=== PATIENT | female | born 1965 | race African-American/Black ===

== ENCOUNTER 2018-12-06 15:59 | Emergency (ER) | payer OTHER ==
[~2018-12-06] VITALS: Ht 152.4 cm; Wt 104.5 kg
[2018-12-06 16:21] VITALS: Ht 152.4 cm; Wt 104.5 kg
[2018-12-06] MEDS ORDERED: BUMEX2 MG (16:26)
[2018-12-06] MEDS ORDERED: TYLENOL W/CODEI1 TAB (16:26)
[2018-12-06] MEDS ORDERED: ZANAFLEX4 MG (16:26)
[2018-12-06] MEDS ORDERED: ADALAT CC90 MG PO (16:27)
[2018-12-06] MEDS ORDERED: CATAPRES0.1 MG (16:27)
[2018-12-06] MEDS ORDERED: FIORICET/ESGIC1 TAB (16:29)
[2018-12-06 17:18] LABS: BASOPHILS 0.5 % (0-2); EOSINOPHILS 2.8 % (0-7); HEMATOCRIT 36.8 % (36.0-48.0); HEMOGLOBIN 11.3 g/dL (12-16); IMMATURE GRANULOCYTES 0.2 % (0-5); LYMPHOCYTES 32.1 % (15-50); MCH 23.8 pg (26.0-34.0); MCHC 30.7 g/dL (31.0-37.0); MCV 77.6 fL (80.0-100.0); MEAN PLATELET VOLUME 9.3 fL (7.4-10.4); MONOCYTES 3.7 % (2-11); NEUTROPHILS 60.7 % (40-80); PLATELET COUNT 333 10x3/uL (130-400); RBC 4.74 10x6/uL (4.00-5.40); WBC 9.6 10x3/uL (4.8-10.8)
[2018-12-06 17:40] LABS: ALBUMIN 3.6 g/dL (3.4-5.0); ANION GAP 10.1 mmol/L (8-16); BILIRUBIN - TOTAL 0.19 mg/dL (0.2-1.3); CALCIUM 8.9 mg/dL (8.5-10.1); CARBON DIOXIDE 32.9 mmol/L (21.0-32.0); CREATININE - SERUM 0.9 mg/dL (0.6-1.3); PROTEIN - SERUM 8.4 g/dL (6.4-8.2)
[2018-12-06 18:36] LABS: APPEARANCE CLEAR (CLEAR); BILIRUBIN NEGATIVE (NEGATIVE); COLOR YELLOW (YELLOW); GLUCOSE NEGATIVE (NEGATIVE); KETONE NEGATIVE (NEGATIVE); NITRITE NEGATIVE (NEGATIVE); PROTEIN NEGATIVE (NEGATIVE); SPECIFIC GRAVITY 1.015 (1.005-1.020); UROBILINOGEN NORMAL (NORMAL)
[2018-12-06] MEDS ORDERED: ZOFRAN ODT4 MG/UDTAB PO (19:39)
[2018-12-06] MEDS ORDERED: BENTYL 20 MG TA20 MG PO (19:39)
[2018-12-06] MEDS ORDERED: PROTONIX40 MG PO (19:43)
[2018-12-06] MEDS ORDERED: TYLENOL W/CODEI1 TAB PO (19:51)
[2018-12-06 20:35] VITALS: BP 173/90
== END 2018-12-06 20:36 | disposition home or self-care (01) ==
LOC: D.ER 15:59
PROVIDERS: Family Medicine
DX: R10.9 Unspecified abdominal pain (principal); R11.0 Nausea

== ENCOUNTER 2019-08-02 08:00 | Outpatient (CLI) | payer OTHER ==
[~2019-08-02] VITALS: Ht 160 cm; Wt 108.9 kg
--- NOTE | ~2019-08-02 | HEMODYNAMI ---
PATIENT:TRAVIS ALLEN MEDICAL RECORD: [id number] : 69 LOCATION:D. ADMISSION DATE: 08/02/19 Generatedon:08/02/20199:16 Patient name: TRAVIS ALLEN Patient #: [id number] SSN: Jen OB: 1965 Date of study: 08/02/2019 Page: Of Hemodynamic Procedure Report Patient Data Patient Demographics Procedure consent was obtained First Name: TRAVIS Gender: Female Last Name: ALEJANDRO : 1965 Patient #: [id number] Age: 54 year(s) Race: Black Additional ID: [id number] Contact details [address]: [address] [place] [address] [address] State: [place] City: [place] Zip code: [address] Admission Admission Data Admission Date: 08/02/2019 Admission Time: 8:00 Procedure Procedure Types Cath Procedure Peripheral Cath Diagnostic Procedure Venography IVC/SVC Inferior Venacavagram Procedure Description Procedure Date Procedure Date: 08/02/2019 Procedure Start Time: 8:41 Procedure Staff Name Function Dieter Butler RT Monitor Juan King MD Performing Physician Michelle Zaragoza RN Nurse KASSIDY HARRELL RT Scrub Procedure Data Cath Procedure Fluoroscopy Diagnostic fluoroscopy Total fluoroscopy Time: 0.4 time: 0.4 min min Diagnostic fluoroscopy Total fluoroscopy dose: 295 dose: 295 mGy mGy Contrast Material Contrast Material Type Amount (ml) Isovue 300 35 Procedure Medications Medication Administration Route Dosage Heparin Flush Bag added to field 3 bags (1000units/500ml NS) Lidocaine 1% added to field 20 Versed I.V. 1 mg Fentanyl I.V. 50 mcg Versed I.V. 1 mg Fentanyl I.V. 50 mcg Hemodynamics Rest Heart Rate: 65 (bpm) Snapshots Pre Cath Intra NCS Post Cath Vital Signs Time Heart Resp SPO2 etCO2 NIBP (mmHg) Rhythm Pain Sedation Rate (ipm) (%) (mmHg) Status Level (bpm) 8:28:52 60 32 100 0 162/91(138) NSR 0 (11) 10(A) , No pain 8:33:15 63 13 100 0 157/94(142) NSR 0 (11) 10(A) , No pain 8:38:14 56 12 100 46.7 Measuring NSR 0 (11) 10(A) , No pain 8:38:18 57 9 100 46.7 170/91(140) NSR 0 (11) 10(A) , No pain 8:42:40 63 14 100 45.2 162/78(133) NSR 0 (11) 10(A) , No pain 8:47:39 61 8 100 49.7 Measuring NSR 0 (11) 10(A) , No pain 8:47:41 58 8 100 49.7 158/92(137) NSR 0 (11) 10(A) , No pain 8:52:01 66 12 100 34.6 148/99(107) NSR 0 (11) 10(A) , No pain 8:57:00 61 19 100 41.4 Measuring NSR 0 (11) 10(A) , No pain 8:57:11 65 19 100 45.9 155/83(137) NSR 0 (11) 10(A) , No pain 9:01:28 56 14 100 49.7 168/95(141) NSR 0 (11) 10(A) , No pain Medications Time Medication Route Dose Verified Delivered Reason Notes Effec tiveness by by 8:28:25 Heparin Flush added 3 Juan Martinez used for Bag to bags Christine King procedure (1000units/500ml field MD MOSER NS) 8:28:39 Lidocaine 1% added 20ml Juan Martinez for local to vial Christine King anesthetic field MD MOSER 8:40:25 Versed I.V. 1 mg Juan Martinez for Christine Zaragoza RN sedation 8:40:37 Fentanyl I.V. 50 Juan Martinez for mcg Christine Zaragoza RN sedation 8:44:36 Versed I.V. 1 mg Juan Martinez for Christine Zaragoza RN sedation 8:44:45 Fentanyl I.V. 50 Juan Martinez for mcg Christine Zaragoza RN sedation Procedure Log Time Note 8:12:00 Dieter Butler RT (R) (CV) sent for patient. Start room use. 8:12:15 Time tracking: Regular hours (M-F 7:00 - 5:00) 8:12:19 Plan of Care:Hemodynamics will remain stable., Cardiac rhythm will remain stable., Comfort level will be maintained., Respiratory function will remain adequate., Patient/ family verbilizes understanding of procedure., Procedure tolerated without complication., Recovers from procedure without complications.. 8:12:30 Patient received from Outpatients to IR Alert and oriented. Tansferred to table in Supine position. 8:12:33 Signed procedure consent form obtained from patient. 8:12:34 Warm blankets applied, and juan carlos hugger turned on for patient comfort. 8:12:35 Correct patient and procedure confirmed by team. 8:12:37 Full Disclosure recording started 8:12:38 8:12:46 H&P Date Dictated: 08/02/2019 Greater than 30 days; new H&P dictated by physician. Or brief H&P completed., Emergent; H&P N/A, Within 30 days and on chart., H&P Addendum completed by physician on day of procedure. (MUST COMPLETE FOR ALL OUTPATIENTS), ER History on chart., New H&P dictated by physician.. 8:13:00 Use device set IR Diagnostic 8:13:02 ACIST Manifold (08095) opened to sterile field. 8:13:02 ACIST Hand Control (22711) opened to sterile field. 8:13:02 ACIST Syringe (90408) opened to sterile field. 8:13:03 Tegaderm 4 x 4 (1626W) opened to sterile field. 8:13:03 Sterile Angiographic Pack opened to sterile field. 8:13:03 Bag Decanter (2001S) opened to sterile field. 8:13:09 Pre-op teaching completed and patient verbalized understanding. 8:13:09 Pre-procedure instructions explained to patient. 8:13:28 Family in waiting room. 8:13:32 Is the patient allergic to Iodine/contrast media? No. 8:13:46 Was the patient premedicated? No 8:13:49 Is patient on blood thinner?No 8:13:51 Patient diabetic? No. 8:13:52 8:13:53 ----Pre-sedation anethsthesia assessment.---- 8:14:01 Previous problem with sedation/anesthesia? No ? 8:14:03 Snore? Yes 8:14:06 Sleep apnea? No 8:14:10 Deviated septum? No 8:14:15 Opens mouth fully? Yes 8:14:16 Sticks out tongue? Yes 8:14:19 Airway obstruction? yes 8:14:22 Dentures? No ? 8:18:05 Patient pain scale 0/10 no pain. 8:18:19 Right groin area was prepped with chlora-prep and draped in sterile fashion 8:18:22 Sharps counted by scrub and verified by R.N. 8:18:22 Alarms reviewed by RAlexandro N. 8:27:41 ECG and BP/O2 sat monitors applied to patient. 8:27:42 Vital chart was started 8:27:45 Baseline sample Acquired. 8:28:25 Heparin Flush Bag (1000units/500ml NS) 3 bags added to field was administered by Juan King MD; used for procedure; Verbal order read back and verified. 8:28:39 Lidocaine 1% 20ml vial added to field was administered by Juan King MD; for local anesthetic; Verbal order read back and verified. 8:38:08 1) 90+ Normal kidney functon but urine findings or structural abnormalities or genetic trait point to kidney disease. 8:38:17 Physician arrived 8:38:18 --------ALL STOP TIME OUT------ 8:38:18 Final Timeout: patient, procedure, and site verified with staff and physician. All members of the team are in agreement. 8:38:21 Right groin site verified by team. 8:38:25 Fire Safety Assessment: A--An alcohol-based skin anteseptic being used preoperatively., C--Open oxygen or nitrous oxide is being used. 8:38:38 Maximum allowable contrast dose (3.7 X eGFR X 0.75)249.75 .22 ml. 8:38:50 Sedation plan: IV Moderate Sedation Medication:Versed, Fentanyl 8:40:25 Versed 1 mg I.V. was administered by Michelle Zaragoza RN; for sedation; Verbal order read back and verified. 8:40:37 Fentanyl 50 mcg I.V. was administered by Michelle Zaragoza RN; for sedation; Verbal order read back and verified. 8:41:46 Procedure started. 8:41:54 Local anesthetic to right femoral vein with Lidocaine 1% by Juan King MD.INITIAL ACCESS ONLY 8:41:55 Access obtained with 4Fr micropunture. 8:42:12 SHEATH 5FR [place] (KOI311) opened to sterile field. 8:42:12 TUBING Contrast Injection High Pressure (WCP244G) opened to sterile field. 8:42:13 BENTSON 145cm wire ([id number]) opened to sterile field. 8:42:13 Micropuncture VSI 4FR kit opened to sterile field. 8:44:36 Versed 1 mg I.V. was administered by Mihcelle Zaragoza RN; for sedation; Verbal order read back and verified. 8:44:45 Fentanyl 50 mcg I.V. was administered by Michelle Zaragoza RN; for sedation; Verbal order read back and verified. 8:52:45 Procedure ended.(Physican Out) 8:56:53 Fluoroscopy time 00.40 minutes. 8:56:59 Flurop Dose total: 295 8:56:59 Fluoroscopy dose: 295 mGy 8:57:07 Contrast amount:Isovue 300 35ml. 8:57:16 Insertion/operative site no bleeding no hematoma. 8:57:30 Post-op/insertion site Right Femoral vein dressed using a 4 x 4 and Tegaderm. 8:57:35 Post right femoral vein:stable 8:58:32 Procedure and supply charges have been captured, reviewed, submitted and are correct. 8:58:33 Post procedure instruction explained to patient.Patient verbalizes understanding. 9:05:32 Report given to Outpatients. 9:05:35 Patient transfered to Outpatients with Stretcher. 9:06:30 Vital chart was stopped 9:06:33 Full Disclosure recording stopped Device Usage Item Name Manufacture Quantity Catalog Hospital Part Current Minima l Lot# / Number Charge Number Stock Stock Serial# Code ACIST Syringe Acist 1 70286 [id number] 082881 [id number] 20 (40277) Medical Systems Inc ACIST Hand Acist 1 08565 163893 404222 183356 5 Control Medical (92472) Systems Inc ACIST Acist 1 10449 789397 390845 329570 5 Manifold Medical (92164) Systems Inc Bag Decanter Microtek 1 2002S 842539 47784 121495 5 (2001S) Medical Inc. Sterile Cardinal 1 [id number] 194864 752214 5 Angiographic Health Pack Tegaderm 4 x 3M 1 1626W 902891 090267 851684 5 4 (1626W) TUBING Merit 1 [id number] 282650 260019 420517 5 Contrast Medical Injection High Pressure (JUB935H) SHEATH 5FR Terumo 1 KGM083 413742 099176 957914 5 [place] (SAK858) Micropuncture VSI VASCULAR 1 7266V 644928 346266 5 VSI 4FR kit SOLUTIONS BENTSON 145cm [facility] 1 [id number] 748834 746251 5 wire ([id number]) Signature Audit [place] Stage Time Signature Unsigned Intra-Procedure 08/02/2019 Dieter Butler RT 9:06:27 AM Luke RT (R) (CV) 08/02/2019 (R) (CV) 9:14:50 AM Intra-Procedure 08/02/2019 Dieter 9:16:46 AM Luke RT (R) (CV) [facility] [address] [place] [address]
[2019-08-02 06:56] LABS: CALC OSMOLALITY 284 mosm/kg (275-300); CALCIUM 8.5 mg/dL (8.5-10.1); CARBON DIOXIDE 30.5 mmol/L (21.0-32.0); CHLORIDE - SERUM 107 mmol/L (98-107); CREATININE - SERUM 0.6 mg/dL (0.6-1.3); GLUCOSE 92 mg/dL (74-106); POTASSIUM - SERUM 3.6 mmol/L (3.5-5.1); SODIUM 144 mmol/L (136-145); UREA NITROGEN 7 mg/dL (7-18); eGFR NON AFRICAN AMERICAN > 90 mL/min (90-120)
[2019-08-02 06:59] LABS: INR 1.02 (0.85-1.17); PROTIME 12.9 SECONDS (11.6-15.0)
[2019-08-02 07:19] VITALS: BP 176/95; Ht 160 cm; Wt 108.9 kg
[2019-08-02 07:20] LABS: BASOPHILS 0.4 % (0-2); EOSINOPHILS 3.9 % (0-7); HEMATOCRIT 35.6 % (36.0-48.0); HEMOGLOBIN 10.4 g/dL (12-16); IMMATURE GRANULOCYTES 0.1 % (0-5); LYMPHOCYTES 40.3 % (15-50); MCH 22.8 pg (26.0-34.0); MCHC 29.2 g/dL (31.0-37.0); MCV 78.1 fL (80.0-100.0); MEAN PLATELET VOLUME 9.5 fL (7.4-10.4); MONOCYTES 4.8 % (2-11); NEUTROPHILS 50.5 % (40-80); PLATELET COUNT 363 10x3/uL (130-400); RBC 4.56 10x6/uL (4.00-5.40); RDW 16.2 % (11.5-14.5); WBC 7.1 10x3/uL (4.8-10.8)
[~2019-08-02 08:00] MED LIST: ADALAT CC90 MG PO; BENTYL 20 MG TA20 MG PO; BUMEX2 MG; CATAPRES0.1 MG; FIORICET/ESGIC1 TAB; PROTONIX40 MG PO; TRANXENE7.5 MG PO; TYLENOL W/CODEI1 TAB; TYLENOL W/CODEI1 TAB PO; ZANAFLEX4 MG; ZOFRAN ODT4 MG/UDTAB PO
== END 2019-08-02 11:05 | disposition home or self-care (01) ==
LOC: D.SP 08:00 → D.RAD 08:00 → D.SP 11:05
PROVIDERS: Radiology Diagnostic Radiology; ATTEND Surgery
DX: I83.90 Asymptomatic varicose veins of unspecified lower extremity (principal)

== ENCOUNTER 2019-09-12 08:15 | Day surgery (SDC) | payer OTHER ==
[2019-09-11 13:23] LABS: BASOPHILS 0.4 % (0-2); EOSINOPHILS 2.9 % (0-7); HEMATOCRIT 36.1 % (36.0-48.0); IMMATURE GRANULOCYTES 0.1 % (0-5); LYMPHOCYTES 37.6 % (15-50); MCH 23.4 pg (26.0-34.0); MCHC 30.5 g/dL (31.0-37.0); MCV 76.6 fL (80.0-100.0); MEAN PLATELET VOLUME 8.8 fL (7.4-10.4); PLATELET COUNT 308 10x3/uL (130-400); RBC 4.71 10x6/uL (4.00-5.40)
[2019-09-11 13:35] LABS: CALC OSMOLALITY 281 mosm/kg (275-300); CALCIUM 9.1 mg/dL (8.5-10.1); CARBON DIOXIDE 30.4 mmol/L (21.0-32.0); CHLORIDE - SERUM 106 mmol/L (98-107); CREATININE - SERUM 0.6 mg/dL (0.6-1.3); GLUCOSE 95 mg/dL (74-106); POTASSIUM - SERUM 4.7 mmol/L (3.5-5.1); SODIUM 142 mmol/L (136-145); UREA NITROGEN 9 mg/dL (7-18); eGFR NON AFRICAN AMERICAN > 90 mL/min (90-120)
[~2019-09-12] VITALS: Ht 160 cm; Wt 111.1 kg
[~2019-09-12 08:15] MED LIST changes: +ADALAT CC90 MG
[2019-09-12 08:36] VITALS: BP 153/91; Ht 160 cm; Wt 111.1 kg
[2019-09-12] MEDS ORDERED: HYDROCODON-ACE1 EA10 PO (12:08)
--- NOTE | 2019-09-12 15:18 | NUR ---
1515 DR ROMANO IN ROOM TO SEE DRESSING. DRESSING CHANGED AND AWARE OF PAIN. VARNER REMOVED 1200ML IN BAG CLEAR YELLOW. ABDOMINAL BINDER APPLIED TO PT.
--- NOTE | 2019-09-12 15:57 | NUR ---
1555 MEDICATED FOR NAUSEA. IMPER REQUEST
--- NOTE | 2019-09-12 19:01 | NUR ---
1310 TO ROOM PT REQUESTED TO USE THE BATHROOM TO URINATE URGENTLY. ASSISTED OFF BED AND IN BATHROOM. PT VOIDED SMALL AMTS FREQUENTLY BUT IN DISCOMFORT TO EMPTY BLADDER. ENCOURAGED PT TO RETURN TO BED SO I CAN DO A BLADDER SCAN. PT WANTED TO STAY ON TOILET, DRESSING TO ABDOMIN. WITH DRAINAGE NOTED MARKED. 1345 ASSISTED BACK TO BED AND BLADDER SCAN RESULTS WAS 631ML, DR BHATTI IN OR NOTIFIED AND ORDERS GIVEN TO DO A IN AND OUT CATHETER, VARNER CATH INSERTED TO DRAIN. APPROX 900 ML IN BAG WITH RELIEF TO BLADDER. MEDICATED FOR PAIN AND PT RECIEVED FULL LIQ TRAY. 1445 NO RELIEF FROM PAIN NORCO 10MG PO. DRAINAGE FROM DRESSING ON GOWN AND BLANKET. 1500 DR BHATTI NOTIFIED AND DRESSING CHANGED. GOWN AND BLANLET CHANGED DR BHATTI ORDERED A MUSCLE RELAXANT THAT PT TAKES AT HOME. VARNER REMOVED AND PT TOLERATED WELL. IV REMOVED AND ABDOMINAL BINDER ON ORDERED. MEDICATED FOR NAUSEA. 1600 INSTRUCTIONS GIVEN AND RX FILLED BY EX , 1700 VOIDED IN BATHROOM AND PAIN NOW A 7/10 FROM A 9/10, ABLE TO UPRIGHT WITH OUT ANY FACIAL GRIMACING 1500
--- NOTE | 2019-09-14 11:57 | OP ---
PATIENT NAME: TRAVIS ALLEN MEDICAL RECORD: [id number] :69 LOCATION:D.OPS ADMISSION DATE: SURGEON: MARANDA BHATTI MD DATE OF OPERATION: 09/12/2019 PREOPERATIVE DIAGNOSES: 1. Epigastric mass. 2. Recurrent ventral hernia. 3. Hypertension. 4. Arthritis. POSTOPERATIVE DIAGNOSES: 1. Epigastric mass. 2. Recurrent ventral hernia. 3. Hypertension. 4. Arthritis. PROCEDURE: 1. Recurrent ventral hernia repair times 2 without mesh. 2. Excision of suture granuloma from the epigastrium. SURGEON: Maranda Bhatti MD REPORT OF PROCEDURE: The patient's abdomen was prepped and draped in sterile fashion. The patient had a large previous incision in the upper midline. We used electrocautery to come through this incision. As we entered the subcutaneous tissue, we encountered some purulent fluid. Cultures were taken times 2. As we went down, we did not see that this involved the abdominal cavity in any way. The small pocket that was present appeared to be clean with a small piece of granular tissue, but no signs of any distinct masses. As we came down through the subcutaneous tissues, we did encounter a hernia defect in the midline. We were able to open up the hernia sac and entered the abdominal cavity where we encountered a large amount of adhesions. With tedious dissection, we were able to take down the adhesions from the upper midline of the abdomen in order to clear out room for closure of the hernia defect. The defect itself was a little over 3 cm in greatest diameter. We actually extended the fascial incision superiorly a little way just so we can see inside the abdomen more clearly to take down the adhesions more safely. Once we had the adhesions taken down circumferentially, we could see there was another small hernia defect just to the right of midline in the upper abdomen. This defect was about 1.5 cm in greatest diameter. We took down the overlying hernia sac tissue revealing a small hernia defect. We then undermined the tissue superiorly towards the mass that was present on CT and we found a firm mass of tissue. This looked like chronic inflammatory tissue. As we were able to dissect this free, we can see this is actually granulomatous tissue around the suture. We removed this tissue and eventually cut out a Prolene suture. I did not feel any other masses or lesions at this time. We continued our dissection of the adhesions in the abdomen closer to the epigastrium until we came over the top of the patient's left lobe of the liver. At this point, we irrigated out the wound with normal saline. All of the fascial edges were free above. We cleared up the fascial edges using electrocautery. The lateral hernia defect was closed with interrupted 0 Prolenes times 4 in a transverse fashion. The midline hernia defect was closed with multiple interrupted 0 Prolenes in the midline. We then irrigated out the wound one last time and assured there was no sign of any bleeding. The subcutaneous tissues were reapproximated with OPERATIVE REPORT [id number] TRAVIS ALLEN interrupted 3-0 Vicryl. A total of 10 mL of 0.25% Marcaine with epinephrine was infused into the surrounding tissues and the skin was closed with pretty. COMPLICATIONS: None. CONDITION: Stable. ANESTHESIA: General endotracheal and local. BLOOD LOSS: 30 mL. TRANSINT:[id number] Voice Confirmation ID: [id number] DOCUMENT ID: [id number] MARANDA BHATTI MD at 1157 CC: [id number] DICTATION DATE: 09/12/19 1220 STATION CHIEF: 09/12/192105 [facility] 09/12/19 [facility] [address] [place] [address]
== END 2019-09-12 17:15 | disposition home or self-care (01) ==
LOC: D.OPS 08:15 → D.PAN 10:30 → D.OPS 17:15
PROVIDERS: ATTEND Surgery
DX: K43.2 Incisional hernia without obstruction or gangrene (principal); I10 Essential (primary) hypertension; M19.90 Unspecified osteoarthritis, unspecified site; R19.06 Epigastric swelling, mass or lump

== ENCOUNTER 2019-12-02 11:30 | Emergency (ER) | payer OTHER ==
[~2019-12-02] VITALS: Ht 160 cm; Wt 109.1 kg
[~2019-12-02 11:30] MED LIST changes: +HYDROCODON-ACE1 EA10 PO
[2019-12-02 11:51] VITALS: Ht 160 cm; Wt 109.1 kg
[2019-12-02] MEDS ORDERED: KEFLEX500 MG PO (13:10)
[2019-12-02] MEDS ORDERED: PROAIR HFA8.5 G1 INH (13:10)
[2019-12-02] MEDS ORDERED: HYDROCODON-ACE1 EAC2 PO (13:10)
[2019-12-02 14:18] VITALS: BP 151/87
== END 2019-12-02 14:20 | disposition home or self-care (01) ==
LOC: D.ER 11:30
DX: R06.00 Dyspnea, unspecified (principal); I10 Essential (primary) hypertension

== ENCOUNTER → 2019-12-15 09:10 | Outpatient (CLI) | payer OTHER ==
[2019-12-02 11:51] VITALS: BMI 42.6
[~2019-12-15 09:10] MED LIST changes: +HYDROCODON-ACE1 EAC2 PO; +KEFLEX500 MG PO; +PROAIR HFA8.5 G1 INH
== END | disposition home or self-care (01) ==
LOC: D.CT 09:10
PROVIDERS: ATTEND Surgery
DX: K43.2 Incisional hernia without obstruction or gangrene (principal); R19.00 Intra-abdominal and pelvic swelling, mass and lump, unspecified site; R10.9 Unspecified abdominal pain

== ENCOUNTER 2020-01-09 06:31 | Day surgery (SDC) | payer OTHER ==
[~2020-01-09] VITALS: Ht 160 cm; Wt 118.2 kg
[2020-01-09 06:52] LABS: BASOPHILS 0.2 % (0-2); HEMATOCRIT 35.5 % (36.0-48.0); HEMOGLOBIN 10.4 g/dL (12-16); IMMATURE GRANULOCYTES 0.2 % (0-5); LYMPHOCYTES 45.4 % (15-50); MCH 22.8 pg (26.0-34.0); MCHC 29.3 g/dL (31.0-37.0); MCV 77.7 fL (80.0-100.0); MONOCYTES 6.4 % (2-11); NEUTROPHILS 45.8 % (40-80); PLATELET COUNT 294 10x3/uL (130-400); RBC 4.57 10x6/uL (4.00-5.40); RDW 16.3 % (11.5-14.5); WBC 8.9 10x3/uL (4.8-10.8)
[2020-01-09 07:15] VITALS: BP 168/94; BMI 43.1
[2020-01-09 07:15] LABS: CALC OSMOLALITY 279 mosm/kg (275-300); CALCIUM 8.6 mg/dL (8.5-10.1); CARBON DIOXIDE 29.7 mmol/L (21.0-32.0); CHLORIDE - SERUM 104 mmol/L (98-107); CREATININE - SERUM 0.7 mg/dL (0.6-1.3); GLUCOSE 102 mg/dL (74-106); POTASSIUM - SERUM 4.3 mmol/L (3.5-5.1); SODIUM 140 mmol/L (136-145); UREA NITROGEN 14 mg/dL (7-18); eGFR NON AFRICAN AMERICAN > 90 mL/min (90-120)
--- NOTE | 2020-01-09 13:46 | NUR ---
100% NON REBREATHING MASK PLACED ON PT AT 15 LPM FOR DECLING SPO2 UPON ARRIVAL TO PACU. REPLACE WITH SM AT 15 LPM AT 1317
[2020-01-09 14:17] VITALS: Ht 160 cm; Wt 118.2 kg
--- NOTE | 2020-01-09 14:20 | NUR ---
PT RECEIVED FROM OR. VSS. PT RESTING COMFORTABLY ASSESSMENT COMPLETE PER FLOW SHEET. REFER FOR FINDINGS. DENIES NEEDS WILL CONTINUE TO MONITOR
[2020-01-09 15:00] VITALS: BP 158/84
--- NOTE | 2020-01-09 17:14 | NUR ---
PT UPTO BSC AT THIS TIME, TOLERATED WELL
[2020-01-09 19:00] VITALS: BP 177/101
--- NOTE | 2020-01-09 19:00 | NUR ---
PT AOX4, VSS, PAIN 7/10- PRN MORPHINE REQUESTED. ABD WITH BINDER, DRSG INTACT WITH SCANT AMOUNT OF BLOODY DRAINAGE. BOWEL SOUNDS ACTIVE IN ALL QUADRANTS. LUNG SOUNDS CLEAR THROUGHOUT, RESPIRATIONS EVEN AND UNLABORED. UP TO BSC, TOLERATED WELL. CALL LIGHT WITHIN PT REACH. CPOC.
--- NOTE | 2020-01-09 19:10 | NUR ---
PT ATE 50% OF DINNER- SOUP. TOLERATED WELL, NO N/V.
--- NOTE | 2020-01-09 19:26 | NUR ---
PRN MORPHINE ADMINISTERED AT THIS TIME PER REQUEST. SBP 177, PRN CATAPRES REQUESTED BY PT AND GIVEN PER ORDER.
[2020-01-09 20:00] VITALS: BP 154/89
--- NOTE | 2020-01-09 22:00 | NUR ---
HS SNACK REQUESTED AT THIS TIME, ATE 100%
[2020-01-09 23:00] VITALS: BP 153/87
--- NOTE | 2020-01-09 23:00 | NUR ---
NO CHANGES AT THIS TIME. PT RESTING QUIETLY. ABDOMINAL DRSG REMAINS THE SAME, BINDER IN PLACE. VSS.
--- NOTE | 2020-01-10 01:00 | NUR ---
NO CHANGES AT THIS TIME. PT REPOSITIONED FOR COMFORT WITH MINIMAL ASSISTANCE. BINDER AND DRSG REMAIN UNCHANGED. VSS, CALL LIGHT WITHIN PT REACH. CPOC.
--- NOTE | 2020-01-10 02:39 | NUR ---
ABD BINDER BUNCHED UP, REPOSITIONED FOR PROPER PLACEMENT. VSS, PT INFORMED OF WHEN PRN PO PAIN MEDICATION CAN BE TAKEN AGAIN, STATES THAT SHE THINKS ABD BINDER REPOSITIONING WILL HELP WITH DISCOMFORT AND SHE WILL WAIT UNTIL TIME FOR THE NEXT PRN NORCO DOSE INSTEAD OF TAKING PRN MORPHINE. CALL LIGHT WITHIN PT REACH. CPOC.
[2020-01-10 04:00] VITALS: BP 110/64
--- NOTE | 2020-01-10 04:40 | NUR ---
PRN PAIN MEDICATION ADMINISTERED AT THIS TIME PER REQUEST, PAIN 03/22. ABD DRSG REMAINS INTACT, AMOUNT OF DRAINAGE ON DRSG REMAINS UNCHANGED. BROTH AND APPLE JUICE PROVIDED UPON REQUEST. VSS, DENIES FURTHER NEEDS. CALL LIGHT WITHIN PT REACH. CPOC.
--- NOTE | 2020-01-10 07:04 | NUR ---
REPORT RECEIVED. ASSESSMENT COMPLETE PER FLOW SHEET. VSS. PT RESTING COMFORTABLY WILL CONTINUE TO MONITOR
[2020-01-10 07:05] VITALS: BP 129/66
--- NOTE | 2020-01-10 09:57 | OP ---
PATIENT NAME: TRAVIS ALLEN MEDICAL RECORD: [id number] :69 LOCATION[facility] D.2301 ADMISSION DATE: SURGEON: MARANDA BHATTI MD DATE OF OPERATION: 01/09/2020 PREOPERATIVE DIAGNOSES: 1. Recurrent ventral incisional hernia. 2. Hypertension. 3. Asthma. POSTOPERATIVE DIAGNOSES: 1. Recurrent ventral incisional hernia. 2. Hypertension. 3. Asthma. PROCEDURE: Recurrent ventral hernia repair with 11.[address] mesh. SURGEON: Maranda Bhatti MD REPORT OF PROCEDURE: The patient's abdomen was prepped and draped in sterile fashion. We opened up the midline of the upper abdomen through an old scar. Electrocautery was used to dissect through the subcutaneous tissues near the epigastrium. We ran into a hernia sac, we began dissecting down through this and was able to come in to the hernia sac and we encountered some adhesions, it appeared to have some small bowel and colon within it. We did a tedious dissection to take down these adhesions out of the hernia sac and then took these adhesions down off the anterior abdominal wall until I was able to feel the upper aspect of the abdomen with these. As I felt down below this hernia, I was able to find another smaller hernia, so I extended the incision down to this. Again, electrocautery was used to go through the skin and subcutaneous tissues until we were able to come around this other smaller hernia. Once we had the hernia sac freed up, we were able to manipulate the subcutaneous tissues off of the anterior fascia. I measured out the larger hernia defect and this was approximately 6 cm in greatest diameter and the smaller defect was about 1 cm in size. Care was taken to assure that there was no sign of any intra-abdominal injuries. I then inserted an 11.[address] mesh in an underlay fashion and sutured this down on all sides of the larger hernia defect using multiple interrupted 0 Prolenes. Once the mesh was in place, we irrigated out the wound with normal saline and closed the fascia in the midline using running #1 loop PDS times 2. The small hernia defect was then closed with interrupted 0 Prolenes times 2. We irrigated out the wound one last time and then reapproximated the subcutaneous tissues using multiple interrupted 3-0 Vicryls and the skin was closed with pretty. A 10 mL of 0.25% Marcaine with epinephrine was infused into the surrounding tissues and the wound was dressed appropriately. COMPLICATIONS: None. CONDITION: Stable. ANESTHESIA: General endotracheal and local. BLOOD LOSS: 50 mL. TRANSINT:[id number] Voice Confirmation ID: [id number] DOCUMENT ID: [id number] OPERATIVE REPORT [id number] TRAVIS ALLEN CHRISTIAN MD at 0957 CC: [id number] DICTATION DATE: 01/09/20 1302 CREPE LAMINATOR OPERATOR: 01/09/20 1651 [place] [id number] [place] [id number]
[2020-01-10 11:00] VITALS: BP 126/45
--- NOTE | 2020-01-10 11:07 | NUR ---
PT RESTING AT THIS TIME, VSS, CALL LIGHT IN REACH
[2020-01-10] MEDS ORDERED: HYDROCODON-ACE1 EA10 PO (12:13)
--- NOTE | 2020-01-10 12:55 | NUR ---
PT LEFT VIA WHEELCHAIR WITH FAMILY. VSS UPON LEAVING. NEEDS MET.
== END 2020-01-10 12:56 | disposition home or self-care, planned readmission (81) ==
LOC: D.OPS 06:31 → D.ICU 13:53 → D.OPS 01-10 12:56
PROVIDERS: ATTEND Surgery
DX: K43.2 Incisional hernia without obstruction or gangrene (principal); I10 Essential (primary) hypertension; J45.909 Unspecified asthma, uncomplicated

== ENCOUNTER 2020-12-16 16:41 | Emergency (ER) | payer OTHER ==
[2020-12-16] MEDS ORDERED: NORVASC5 MG PO (17:00)
[2020-12-16 17:26] LABS: BASOPHILS 0.4 % (0-2); EOSINOPHILS 3.4 % (0-7); HEMATOCRIT 36.8 % (36.0-48.0); IMMATURE GRANULOCYTES 0.1 % (0-5); LYMPHOCYTES 31.3 % (15-50); MCH 23.2 pg (26.0-34.0); MCHC 29.9 g/dL (31.0-37.0); MCV 77.5 fL (80.0-100.0); MEAN PLATELET VOLUME 9.5 fL (7.4-10.4); MONOCYTES 5.6 % (2-11); NEUTROPHIL ABS# 5.87 10x3/uL (1.56-6.13); NEUTROPHILS 59.2 % (40-80); PLATELET COUNT 310 10x3/uL (130-400); RBC 4.75 10x6/uL (4.00-5.40); RDW 16.7 % (11.5-14.5); WBC 9.9 10x3/uL (4.8-10.8)
[2020-12-16 17:34] LABS: APTT 26.7 SECONDS (22.8-39.4); CALC OSMOLALITY 284 mosm/kg (275-300); CALCIUM 9.2 mg/dL (8.5-10.1); CARBON DIOXIDE 32.1 mmol/L (21.0-32.0); CHLORIDE - SERUM 105 mmol/L (98-107); CREATININE - SERUM 0.7 mg/dL (0.6-1.3); GLUCOSE 98 mg/dL (74-106); INR 1.07 (0.85-1.17); POTASSIUM - SERUM 4.5 mmol/L (3.5-5.1); PROTIME 12.9 SECONDS (11.6-15.0); SODIUM 143 mmol/L (136-145); UREA NITROGEN 12 mg/dL (7-18); eGFR NON AFRICAN AMERICAN > 90 mL/min (90-120)
[2020-12-16 17:51] LABS: ALBUMIN 3.7 g/dL (3.4-5.0); ALKALINE PHOSPHATASE 142 U/L (30-120); ALT (SGPT) 14 U/L (10-68); BILIRUBIN - TOTAL 0.11 mg/dL (0.2-1.3); CKMB 0.9 U/L (0.0-3.6); CREATINE KINASE 83 UL (21-215); MAGNESIUM - SERUM 2.2 mg/dL (1.8-2.4); PROTEIN - SERUM 8.1 g/dL (6.4-8.2)
[2020-12-16 17:58] LABS: TROPONIN-I < 0.017 ng/mL (0.000-0.060)
== END 2020-12-16 22:26 | disposition home or self-care (01) ==
LOC: D.ER 16:41
PROVIDERS: Emergency Medicine
DX: I10 Essential (primary) hypertension (principal); G43.909 Migraine, unspecified, not intractable, without status migrainosus; J45.909 Unspecified asthma, uncomplicated